=== PATIENT | female | born 1995 | race African-American/Black ===

== ENCOUNTER 2016-11-21 17:58 | Emergency (ER) | payer MEDICAID ==
[~2016-11-21] VITALS: Ht 162.6 cm; Wt 70.3 kg
[~2016-11-21 17:58] MED LIST: PREN-96 PO
[2016-11-21 18:47] LABS: Basophils # (auto) 0.1 uL; Basophils % (auto) 0.5 % (0.0-2.0); Eosinophils # (auto) 0.1 uL; Eosinophils % (auto) 1.3 % (0.0-7.0); Hemoglobin 12.9 g/dL (12.2-16.2); Lymphocytes # (auto) 2.8 uL; Lymphocytes % (auto) 25.6 % (10.0-50.0); Mean Corpuscular Hemoglobin 27.1 pg (28.0-32.0); Mean Corpuscular Volume 82.1 fL (80.0-100.0); Mean Platelet Volume 9.3 fL (7.4-10.4); Monocytes # (auto) 0.6 uL; Monocytes % (auto) 5.4 % (0.0-12.0); Neutrophils # (auto) 7.3 uL; Neutrophils % (auto) 67.2 % (37.0-80.0); Platelet Count (auto) 240 10^3/uL (140-450); Red Cell Distribution Width 14.4 % (11.6-16.0); White Blood Cell 10.8 10^3/uL (4.4-10.8)
[2016-11-21 19:04] LABS: Albumin 3.1 g/dL (3.4-5.0); Calcium 8.6 mg/dL (8.5-10.1); Potassium 3.9 mmol/L (3.5-5.1)
[2016-11-21 19:07] LABS: Bilirubin, Total 0.1 mg/dL (0.2-1.0); Total Protein 6.5 g/dL (6.4-8.2)
[2016-11-21 20:41] VITALS: BP 118/67
[2016-11-21 21:47] LABS: INR 0.91 (0.9-1.15); Partial Thromboplastin Time 30.6 sec (22.64-33.71); Prothrombin Time 9.8 sec (9.37-12.3)
== END 2016-11-21 22:40 | disposition home or self-care (01) ==
LOC: EDBD 17:58 → ER 18:08
DX: O20.0 Threatened abortion (principal); Z3A.14 14 weeks gestation of pregnancy
CPT/HCPCS: 36415; 76805; 80053; 84702; 85025; 85610; 85730; 86901

== ENCOUNTER 2017-02-10 00:26 | Emergency (ER) | payer MEDICAID ==
[~2017-02-10] VITALS: Ht 162.6 cm; Wt 81.6 kg
[2017-02-10 00:38] VITALS: BP 122/79
== END 2017-02-10 05:17 | disposition home or self-care (01) ==
LOC: ER 00:27
DX: O26.892 Other specified pregnancy related conditions, second trimester (principal); T16.2XXA Foreign body in left ear, initial encounter; Z3A.24 24 weeks gestation of pregnancy; W22.8XXA Striking against or struck by other objects, initial encounter; Y93.89 Activity, other specified; Y99.8 Other external cause status; Y92.89 Other specified places as the place of occurrence of the external cause
CPT/HCPCS: 69200; 69210

== ENCOUNTER 2017-02-25 08:38 | Emergency (ER) | payer MEDICAID ==
[~2017-02-25] VITALS: Ht 162.6 cm; Wt 84.8 kg
[2017-02-25 10:17] VITALS: BP 88/55
== END 2017-02-25 10:20 | disposition home or self-care (01) ==
LOC: ER 08:38
DX: M79.605 Pain in left leg (principal)

== ENCOUNTER 2017-04-19 11:05 | Observation (INO) | payer MEDICAID ==
[2017-04-19 14:06] LABS: Basophils # (auto) 0 uL; Eosinophils % (auto) 1.7 % (0.0-7.0)
[2017-04-19 14:09] LABS: Basophils % (auto) 0.3 % (0.0-2.0); Eosinophils # (auto) 0.1 uL; Hematocrit 39.1 % (36.0-46.0); Hemoglobin 12.9 g/dL (12.2-16.2); Lymphocytes # (auto) 2.2 uL; Lymphocytes % (auto) 24.5 % (10.0-50.0); Mean Corpuscular Hemoglobin 24.8 pg (28.0-32.0); Mean Corpuscular Volume 75.2 fL (80.0-100.0); Mean Platelet Volume 9.6 fL (6.9-10.8); Monocytes # (auto) 0.6 uL; Monocytes % (auto) 7.1 % (0.0-12.0); Neutrophils # (auto) 5.9 uL; Neutrophils % (auto) 66.4 % (37.0-80.0); Platelet Count (auto) 163 10^3/uL (140-450); Red Cell Distribution Width 17.1 % (11.8-14.3); White Blood Cell 8.8 10^3/uL (4.4-10.8)
[2017-04-19 14:18] LABS: INR 0.9 (0.9-1.15); Partial Thromboplastin Time 29.8 sec (22.64-33.71); Prothrombin Time 9.8 sec (9.37-12.3)
[2017-04-19 14:28] LABS: Albumin 2.8 g/dL (3.4-5.0); Calcium 8.8 mg/dL (8.5-10.1); Potassium 4.1 mmol/L (3.5-5.1)
[2017-04-19 14:30] LABS: BUN/Creatinine Ratio 6.7; Uric Acid 2.8 mg/dL (2.6-6.0)
[2017-04-19 14:43] LABS: Urine Bilirubin Negative (Negative); Urine Blood Negative /uL (Negative); Urine Glucose Normal (Normal); Urine Ketone Negative (Negative); Urine Mucus FEW (None Seen); Urine Nitrite Negative (Negative); Urine RBC 1 /hpf (0 - 4); Urine Squamous Epithelial Cell MOD /hpf (<5); Urine Urobilinogen Normal (Negative); Urine pH 6.5 (5.0-8.0)
[2017-04-19 14:49] LABS: Urine Color Straw (Yellow)
[2017-04-19 15:08] LABS: Bilirubin, Total 0.3 mg/dL (0.2-1.0); Total Protein 6.8 g/dL (6.4-8.2)
== END 2017-04-19 13:40 | disposition home or self-care (01) | DRG 566 ==
LOC: LDRP 11:05
PROVIDERS: ADMIT Specialist; ATTEND Specialist
DX: O24.419 Gestational diabetes mellitus in pregnancy, unspecified control (principal); Z3A.35 35 weeks gestation of pregnancy
CPT/HCPCS: 36415; 59025; 76818; 80053; 80307; 81001; 81002; 82948; 83036; 84550; 85025; 85610; 85730; 86592; G0378

== ENCOUNTER 2017-04-23 15:00 | Observation (INO) | payer MEDICAID | END 2017-04-23 16:40 | disposition home or self-care (01) | DRG 566 | LOC: LDRP 15:00 | PROVIDERS: ADMIT Specialist; ATTEND Specialist | DX: O24.419 Gestational diabetes mellitus in pregnancy, unspecified control (principal); Z3A.36 36 weeks gestation of pregnancy | CPT/HCPCS: 59025; 76818; 81002; 82948; 82962; G0378 ==

== ENCOUNTER 2017-04-30 11:23 | Observation (INO) | payer MEDICAID ==
[2017-04-30] MEDS ORDERED: LACTATED RINGER'S 1,000 ML IV ONE (12:54)
[2017-04-30] MEDS: TERBUTALINE SULFATE 1 MG/ML 1ML VIAL SC SCH ×2 (13:16→13:35)
== END 2017-04-30 14:55 | disposition home or self-care (01) | DRG 566 ==
LOC: LDRP 11:23
PROVIDERS: ADMIT Obstetrics & Gynecology; ATTEND Obstetrics & Gynecology
DX: O24.419 Gestational diabetes mellitus in pregnancy, unspecified control (principal); Z3A.37 37 weeks gestation of pregnancy
CPT/HCPCS: 59025; 76818; 81002; 82948; 82962; 96360; 96372; G0378; J3105; 96365; 96366

== ENCOUNTER 2017-05-05 14:55 | Observation (INO) | payer MEDICAID ==
[2017-05-05] MEDS ORDERED: TERBUTALINE SULFATE 1 MG/ML 1ML VIAL SC ONE (17:09)
[2017-05-05] MEDS ORDERED: TERBUTALINE SULFATE 1 MG/ML 1ML VIAL SC SCH (17:15)
[2017-05-05] MEDS ORDERED: ceFAZolin 1GM/50ML 50 ML IV ONE (22:51)
[2017-05-05] MEDS ORDERED: BETAMETHASONE ACET (6MG/ML) 5ML VIAL ONE (22:51)
== END 2017-05-05 18:00 | disposition home or self-care (01) | DRG 566 ==
LOC: LDRP 14:55
PROVIDERS: ADMIT Obstetrics & Gynecology; ATTEND Obstetrics & Gynecology
DX: O42.92 Full-term premature rupture of membranes, unspecified as to length of time between rupture and onset of labor (principal); Z3A.37 37 weeks gestation of pregnancy
CPT/HCPCS: 59025; 81002; 82962; 96372; G0378; J0690; J0702; J3105; 96374

== ENCOUNTER 2017-05-05 21:56 | Inpatient (IN) | payer MEDICAID ==
[~2017-05-05] VITALS: Ht 162.6 cm; Wt 86.2 kg
[2017-05-05] MEDS ORDERED: LACTATED RINGER'S 1,000 ML IV SCH (22:08)
[2017-05-05] MEDS ORDERED: BETAMETHASONE ACET (6MG/ML) 5ML VIAL IM ONE (22:15)
[2017-05-05 22:49] LABS: Basophils # (auto) 0.1 uL; Eosinophils # (auto) 0.1 uL; Hemoglobin 11.7 g/dL (12.2-16.2); Lymphocytes # (auto) 2.1 uL; Monocytes # (auto) 0.6 uL; Neutrophils # (auto) 6.4 uL; Nucleated Red Blood Cells % 0.1 %; White Blood Cell 9.2 10^3/uL (4.4-10.8)
[2017-05-05 22:50] LABS: Basophils % (auto) 0.7 % (0.0-2.0); Eosinophils % (auto) 0.6 % (0.0-7.0); Hematocrit 35.5 % (36.0-46.0); Lymphocytes % (auto) 22.9 % (10.0-50.0); Mean Corpuscular Hemoglobin 24.6 pg (28.0-32.0); Mean Corpuscular Hgb Conc. 32.9 g/dL (32.0-36.0); Mean Corpuscular Volume 74.7 fL (80.0-100.0); Monocytes % (auto) 6.1 % (0.0-12.0); Neutrophils % (auto) 69.7 % (37.0-80.0); Platelet Count (auto) 151 10^3/uL (140-450); Red Blood Cells 4.76 10^6/uL (4.0-5.20)
[2017-05-05 22:58] LABS: Urine Bacteria FEW /hpf (None Seen); Urine Blood 2+ /uL (Negative); Urine Specific Gravity 1.007 (1.001-1.035); Urine WBC 22 /hpf (0 - 5)
[2017-05-05 23:05] LABS: INR 0.91 (0.9-1.15); Partial Thromboplastin Time 30.6 sec (22.64-33.71); Prothrombin Time 9.9 sec (9.37-12.3)
[2017-05-05 23:10] LABS: Albumin 2.7 g/dL (3.4-5.0); Bilirubin, Total 0.3 mg/dL (0.2-1.0); Potassium 3.6 mmol/L (3.5-5.1); Total Protein 6.3 g/dL (6.4-8.2)
[2017-05-05 23:11] LABS: Alcohol, Urine < 3.0 mg/dL (0-5); Amphetamine Screen, Urine NEGATIVE (NEGATIVE); Barbiturate Scree,Urine NEGATIVE (NEGATIVE); Benzodiazephine Screen, Urine NEGATIVE (NEGATIVE); Cannabinoid Screen, Urine NEGATIVE (NEGATIVE); Cocaine Screen, Urine NEGATIVE (NEGATIVE); Opiate Scree,Urine NEGATIVE (NEGATIVE); Phencyclidine Screen, Urine NEGATIVE (NEGATIVE)
[2017-05-05] MEDS: ceFAZolin 1GM/50ML 50 ML IV SCH (23:20)
[2017-05-05] MEDS ORDERED: TERBUTALINE SULFATE 1 MG/ML 1ML VIAL SC ONE (23:49)
[2017-05-06] VITALS (10 sets, daily range): BP systolic 94–120; BP diastolic 38–78
[2017-05-06] MEDS: TERBUTALINE SULFATE 1 MG/ML 1ML VIAL SC SCH ×3 (00:30→02:39)
[2017-05-06] MEDS: ceFAZolin 1GM/50ML 50 ML IV SCH ×3 (06:46→21:50)
[2017-05-06] MEDS ORDERED: fentaNYL CITRATE 100 MCG/2 ML VL ONE (07:16)
[2017-05-06] MEDS ORDERED: MORPHINE SULF(PF) 0.5MG/ML 10ML VIAL ONE (07:24)
[2017-05-06] MEDS: LACTATED RINGER'S 1,000 ML IV SCH ×2 (08:27→16:27)
[2017-05-06] MEDS ORDERED: ONDANSETRON HCL 4 MG/2 ML VIAL IV PRN (08:30)
[2017-05-06] MEDS ORDERED: HYDROmorphone HCL 2 MG/ML VL IV PRN (08:30)
[2017-05-06] MEDS ORDERED: NALOXONE HCL 0.4 MG/ML VIAL IV PRN (08:30)
[2017-05-06] MEDS ORDERED: KETOROLAC TROMETH 30 MG/ML 1ML VIAL IV PRN (08:30)
[2017-05-06] MEDS ORDERED: diphenhdrAMINE HCL 50 MG/1 ML VL IV PRN (08:30)
[2017-05-06] MEDS ORDERED: OXYTOCIN 10UNIT/ML 1ML VIAL ONE (08:51)
[2017-05-06] MEDS: KETOROLAC TROMETH 30 MG/ML 1ML VIAL IV SCH ×3 (11:52→23:31)
[2017-05-06] MEDS ORDERED: INFLUENZA QUAD 2017-2018 0.5 ML SYRG IM ONE (14:15)
[2017-05-06] MEDS ORDERED: TETANUS-DIPTH-ACEL PERTUSSIS 0.5ML SYRG IM ONE (14:15)
[2017-05-07 00:12] VITALS: BP 105/57
[2017-05-07] MEDS: LACTATED RINGER'S 1,000 ML IV SCH (00:27)
[2017-05-07 03:58] VITALS: BP 92/69
[2017-05-07] MEDS: KETOROLAC TROMETH 30 MG/ML 1ML VIAL IV SCH (05:45)
[2017-05-07] MEDS: ceFAZolin 1GM/50ML 50 ML IV SCH (05:45)
[2017-05-07 07:00] LABS: Basophils # (auto) 0.1 uL; Basophils % (auto) 0.6 % (0.0-2.0); Eosinophils # (auto) 0 uL; Eosinophils % (auto) 0.3 % (0.0-7.0); Hemoglobin 10.2 g/dL (12.2-16.2); Nucleated Red Blood Cells % 0.1 %
[2017-05-07 07:01] LABS: Hematocrit 31.4 % (36.0-46.0); Lymphocytes # (auto) 2.5 uL; Lymphocytes % (auto) 20.4 % (10.0-50.0); Mean Corpuscular Hemoglobin 24.6 pg (28.0-32.0); Mean Corpuscular Hgb Conc. 32.6 g/dL (32.0-36.0); Mean Corpuscular Volume 75.5 fL (80.0-100.0); Monocytes # (auto) 0.9 uL; Monocytes % (auto) 7.4 % (0.0-12.0); Neutrophils # (auto) 8.8 uL; Neutrophils % (auto) 71.3 % (37.0-80.0); Platelet Count (auto) 151 10^3/uL (140-450); Red Blood Cells 4.16 10^6/uL (4.0-5.20); Red Cell Distribution Width 16.9 % (11.8-14.3); White Blood Cell 12.4 10^3/uL (4.4-10.8)
[2017-05-07 08:00] VITALS: BP 98/63
[2017-05-07] MEDS ORDERED: HYDROcodone-ACET 5/325MG TAB PO PRN (10:15)
[2017-05-07] MEDS: DOCUSATE SOD 100 MG CAP PO SCH ×2 (11:02→22:01)
[2017-05-07] MEDS: IBUPROFEN 800 MG TAB PO PRN (11:02)
[2017-05-07 12:07] VITALS: BP 102/60
[2017-05-07 15:50] VITALS: BP 96/56
[2017-05-07] MEDS: HYDROcodone-ACET 5/325MG TAB PO PRN ×2 (16:04→22:01)
[2017-05-07 20:00] VITALS: BP 133/79
[2017-05-08] VITALS (7 sets, daily range): BP systolic 101–134; BP diastolic 63–82
[2017-05-08] MEDS: IBUPROFEN 800 MG TAB PO PRN ×3 (02:25→21:33)
[2017-05-08] MEDS: DOCUSATE SOD 100 MG CAP PO SCH ×2 (10:25→21:33)
[2017-05-08] MEDS: HYDROcodone-ACET 5/325MG TAB PO PRN (18:39)
[2017-05-09 02:39] VITALS: BP 107/57
[2017-05-09 08:00] VITALS: BP 120/63
[2017-05-09] MEDS: HYDROcodone-ACET 5/325MG TAB PO PRN (08:37)
[2017-05-09] MEDS ORDERED: INFLUENZA QUAD 2017-2018 0.5 ML SYRG IM ONE (11:00)
[2017-05-09] MEDS ORDERED: TETANUS-DIPTH-ACEL PERTUSSIS 0.5ML SYRG IM ONE (11:00)
[2017-05-09] MEDS: DOCUSATE SOD 100 MG CAP PO SCH (11:23)
== END 2017-05-09 11:45 | disposition home or self-care (01) | DRG 540 ==
LOC: LDRP 21:56 → OBSVTOIN 21:56 → LDRP 23:01
PROVIDERS: ADMIT Specialist; ATTEND Specialist
PROC: 10D00Z1 Extraction of Products of Conception, Low, Open Approach (ICD-10-PCS; principal; 2017-05-06 07:17)
DX: O42.913 Preterm premature rupture of membranes, unspecified as to length of time between rupture and onset of labor, third trimester (principal); O60.14X0 Preterm labor third trimester with preterm delivery third trimester, not applicable or unspecified; O24.429 Gestational diabetes mellitus in childbirth, unspecified control; O34.211 Maternal care for low transverse scar from previous cesarean delivery; O99.824 Streptococcus B carrier state complicating childbirth; Z37.0 Single live birth; Z3A.37 37 weeks gestation of pregnancy; Z23 Encounter for immunization
CPT/HCPCS: 36415; 51702; 59025; 76805; 80053; 80307; 81001; 82948; 82962; 85025; 85610; 85730; 86850; 86900; 86901; 90472; 90715; 96361; 96365; 96366; 96372; 96375; J0690; J1885; J2405

== ENCOUNTER 2017-06-07 11:20 | Emergency (ER) | payer MEDICAID ==
[~2017-06-07] VITALS: Ht 162.6 cm; Wt 78.9 kg
[2017-06-07 12:00] VITALS: BP 128/87
== END 2017-06-07 12:15 | disposition home or self-care (01) ==
LOC: ER 11:20
DX: N39.0 Urinary tract infection, site not specified (principal)
CPT/HCPCS: 81025